=== PATIENT | female | born 1995 | race Caucasian/White ===

== ENCOUNTER 2020-03-26 06:01 | Emergency (ER) | payer SELFPAY ==
[2020-03-26 06:10] VITALS: BP 114/74
[2020-03-26] MEDS ORDERED: ONDANSETRON HCL INJ/PF 4 MG/2 ML SDV IV ONE (07:59)
--- NOTE | 2020-03-26 08:17 | ER Document Report ---
Doctor's Note Notes: 03/26/20 08:16 I reviewed the chart and entered the room at 0750 hrs. to evaluate patient. She was not in the room and could not be located in the department and is presumed to have eloped.
== END 2020-03-26 08:19 | disposition left against medical advice (07) ==
LOC: ER 06:01
DX: Z53.21 Procedure and treatment not carried out due to patient leaving prior to being seen by health care provider (principal)